=== PATIENT | male | born 1960 ===

== ENCOUNTER 2018-02-05 16:38 | Inpatient (IN) | payer OTHER ==
[2018-02-05 16:43] VITALS: BMI 21.7
[2018-02-05] MEDS ORDERED: Iodixanol 320 MG/ML 100 ML BOTTLE IV ONE (16:55)
[2018-02-05 17:03] LABS: BASO # 0.1 K/uL (0.0-0.2); BASO % 0.7 % (0.0-2.0); EOS # 0.3 K/uL (0.0-0.7); EOS % 2.7 % (0.0-4.0); HEMOGLOBIN 14.5 g/dL (12.0-18.0); LYMPH % 26.9 % (20.0-40.0); MEAN CELL VOLUME 85.7 fL (80.0-94.0); MEAN CORPUSCULAR HGB CONC 33.8 g/dL (33.0-37.0); MEAN PLATELET VOLUME 7.5 fL (7.2-11.7); MONO # 1.1 K/uL (0.0-0.8); MONO % 10.1 % (0.0-10.0); NEUT # 6.7 K/uL (1.8-7.0); NEUT % 59.6 % (50.0-75.0); RBC 5.01 Mil/uL (4.40-5.90); RED CELL DISTRIBUTION WIDTH 13.7 % (11.5-14.5); WHITE BLOOD COUNT 11.3 K/uL (4.8-10.8)
--- NOTE | 2018-02-05 17:06 | CT ---
PROCEDURE: CT HEAD WITHOUT CONTRAST. HISTORY: Left sided weakness. Abnormal FTN on left COMPARISON: None available. TECHNIQUE: Axial computed tomography images were obtained through the head/brain without intravenous contrast. Coronal and sagittal reconstructed images. Radiation dose: Total exam DLP = 854.94 mGy-cm. This CT exam was performed using one or more of the following dose reduction techniques: Automated exposure control, adjustment of the mA and/or kV according to patient size, and/or use of iterative reconstruction technique. FINDINGS: HEMORRHAGE: No intracranial hemorrhage. BRAIN: No mass effect or edema. No atrophy or chronic microvascular ischemic changes. VENTRICLES: Unremarkable. No hydrocephalus. CALVARIUM: Unremarkable. PARANASAL SINUSES: Completely opacified right maxillary sinus. No evidence of acute sinusitis. MASTOID AIR CELLS: Unremarkable as visualized. No inflammatory changes. OTHER FINDINGS: Prominent vaginal and transverse sinuses common normal variant. IMPRESSION: No acute intracranial abnormalities. No significant findings to account for the clinical presentation. Additional benign and/or incidental findings described above. Code stroke protocol: Study completed 16:54 Radiologist notified 16:57 Results conveyed verbally at 17:03. Findings provided verbally to the attending physicianHayley Gomez M.D. Interpretation finalized and available for review 17:05
[2018-02-05 17:10] LABS: INR 0.9; PROTHROMBIN TIME 10.1 SECONDS (9.7-12.2)
--- NOTE | 2018-02-05 17:12 | C.PDOC ---
History Of Present Illness Pt develop left sided weakness at home. Weakness resolved upon arrival to the ER. Time Seen by Provider: 02/05/18 16:46 Chief Complaint (Nursing): Weakness/Neurological Deficit History Per: Patient, Family Onset/Duration Of Symptoms: Hrs (1.5) Current Symptoms Are (Timing): Better Fall Associated With With Symptoms: No Severity: Moderate Additional History Per: Prior Records - Symptoms Of CVA Character Of Deficits: Left: Weakness, Sensory Loss, Right: Sensory Loss, Arm: Weakness, Leg: Weakness, Sensory Loss Recent Head Trauma: No Past Medical History Reviewed: Historical Data, Nursing Documentation, Vital Signs Vital Signs: Last Vital Signs Temp 99.2 F 02/05/18 16:40 Pulse 103 H 02/05/18 17:42 Resp 14 02/05/18 17:42 BP 156/100 H 02/05/18 17:42 Pulse Ox 97 02/05/18 19:24 - Medical History PMH: HTN, Hypercholesterolemia Family History: States: Unknown Family Hx - Social History Hx Alcohol Use: Yes Hx Substance Use: No - Immunization History Hx Tetanus Toxoid Vaccination: No Hx Influenza Vaccination: No Hx Pneumococcal Vaccination: No Review Of Systems Except As Marked, All Systems Reviewed And Found Negative. Constitutional: Negative for: Fever Cardiovascular: Negative for: Chest Pain Respiratory: Negative for: Shortness of Breath Gastrointestinal: Negative for: Vomiting, Abdominal Pain Musculoskeletal: Negative for: Neck Pain, Back Pain Skin: Negative for: Rash Neurological: Negative for: Seizures, Altered Mental Status, Headache Physical Exam - Physical Exam Appears: Non-toxic, No Acute Distress Skin: Normal Color, Warm, Dry Head: Atraumatic, Normacephalic Eye(s): bilateral: PERRL, EOMI Neck: Normal ROM, Supple Cardiovascular: Rhythm Regular (tachycardia) Respiratory: Normal Breath Sounds, No Accessory Muscle Use Gastrointestinal/Abdominal: Soft, No Tenderness Extremity: Normal ROM, No Deformity Neurological/Psych: Oriented x3, Normal Speech, Normal Cognition, Cerebellar Signs (Abnormal left finger to nose), Normal Motor, Normal Sensation ED Course And Treatment - Laboratory Results Result Diagrams: 02/05/18 17:00 02/05/18 17:00 Interpretation Of Abnormal: Positive for Cocaine ECG: Interpreted By Me, Viewed By Me ECG Rhythm: Sinus Tachycardia Rate From EC O2 Sat by Pulse Oximetry: 97 Pulse Ox Interpretation: Normal - Radiology CXR: Interpreted by Me, Viewed By Me CXR Interpretation: Yes: No Acute Disease - CT Scan/US CT head Other Rad Studies (CT/US): Read By Radiologist, Radiology Report Reviewed CT/US Interpretation: IMPRESSION: No acute intracranial abnormalities. No significant findings to account for the clinical presentation. Additional benign and/or incidental findings described above. CTA of chest Other Rad Studies (CT/US): Read By Radiologist, Radiology Report Reviewed CT/US Interpretation: IMPRESSION: Unremarkable CT Angiography of the neck and brain as detailed above. No evidence of large aneurysm nor vascular malformation. Progress Note: Symptoms resolved. Reassessment Condition: Improved - Physician Consult Information Physician Contacted: Yaron Nguyen Outcome Of Conversation: He evaluated pt in the ED. Recommended IV Magnesium and admission for TIA workup. NIHSS Stroke Scale 2 - Date/Time Evaluation Performed Date Performed: 02/05/18 Time Performed: 17:00 When Was NIHSS Performed: Baseline - How Severe is the Stroke Level of Consciousness: 0=Alert LOC to Questions: 0=Both comments correct LOC to commands: 0=Obeys both correctly Best Gaze: 0=Normal Visual: 0=No visual loss Facial: 0=Normal Motor Arm - Left: 0=No drift Motor Arm - Right: 0=No drift Motor Leg - Left: 0=No drift Motor Leg - Right: 0=No drift Limb Ataxia: 1=Present Upper or Lower Sensory: 0=Normal Best Language: 0=No aphasia Dysarthia: 0=Normal articulation Extinction & Inattention (Neglect): 0=Normal, no object Score: 1 Progress - Interventions Interventions:: Observation, Intravenous fluid - Medications Administered Oral: Aspirin (Pt took at home prior to arrival) Intravenous: Other (Mg. Ativan.) - Data Reviewed Data Reviewed: Lab, Diagnostic imaging, EKG, Old records - Patient Status Patient status: Completely improved - Continuity of Care Discussed patient case with:: Patient, Family-HIPPA compliant, ED Nurse - Patient Plan Patient Plan: Admission, Telemetry rTPA Inclusion/Exclusion - Inclusion Criteria for Altepase Patient is 18 years or Older: Yes The Clinical Diagnosis of Ischemic Stroke That is Causing a Potentially Disabling Neurological Deficit: Yes Time of Onset is Well Established to be Less Than 270 Minute Before Treatment Would Begin: Yes Risk/Benefit Discussed With Patient/Family Member Present: No - Warning to TPA With Conditions Condition: Rapid Improvement Disposition Discussed With : Adiel Naik Comment: He accepted pt on hospitalist service Doctor Will See Patient In The: Hospital Counseled Patient/Family Regarding: Studies Performed, Diagnosis - Disposition Disposition: HOSPITALIZED Disposition Time: 19:33 Condition: IMPROVED - Clinical Impression Clinical Impression: TIA (transient ischemic attack)
[2018-02-05 17:16] LABS: ALB/GLOB RATIO 1.2 (1.0-2.1); ALBUMIN 4.3 g/dL (3.5-5.0); ALT/SGPT 13 U/L (21-72); AST/SGOT 29 U/L (17-59); BLOOD UREA NITROGEN 19 mg/dL (9-20); CALCIUM 9.2 mg/dl (8.6-10.4); GFR AFRICAN-AMERICAN > 60; GFR NON-AFRICAN AMERICAN 57; HDL CHOLESTEROL 53 mg/dL (30-70)
[2018-02-05 17:26] LABS: LDL CHOLESTEROL 166 mg/dL (0-129)
[2018-02-05] MEDS ORDERED: Magnesium Sulfate 1 gm in D5W 1 GM/100 ML BAG IVPB STA (17:27)
[2018-02-05] MEDS ORDERED: Sodium Chloride 0.9% 1,000 ML IV ONE (17:30)
--- NOTE | 2018-02-05 17:33 | CT ---
PROCEDURE: CT Angiography of the neck and brain dated 02/05/2018. HISTORY: Left-sided weakness. Abnormal [id number]. COMPARISON: Comparison made with CT scan abdomen pelvis obtained earlier same day. TECHNIQUE: Contiguous helical/transaxial images of the neck were obtained from the level of the skull-base to the superior mediastinum in the arteriographic phase of enhancement. Coronal and sagittal reformats or also generated. IV contrast dose: 100 cc Visipaque 320 Radiation Dose - DLP: 581.27 mGy-cm This CT exam was performed using one or more of the following dose reduction techniques: Automated exposure control, adjustment of the mA and/or kV according to patient size, and/or use of iterative reconstruction technique. FINDINGS: Visualized portions of the aortic arch widely patent. No significant atherosclerotic plaque. There appears to be a common origin of the right brachiocephalic and the common carotid artery. The common carotid artery is common carotid bifurcations and internal carotid arteries are widely patent with no evidence of occlusion dissection or significant stenosis. Minimal punctate calcified plaque seen along the posterior aspect left carotid bifurcation. The internal carotid artery including the petrous cavernous and supraclinoid segments are widely patent. The vertebral arteries are also patent throughout left-sided which is slightly larger in caliber/more dominant than the right side. No evidence of occlusion, dissection or significant stenosis the basilar artery is patent. The visualized major branches of the [place] on appear patent as well. The distal branches of the middle cerebral artery is and anterior cerebral arteries appear relatively symmetric. No evidence of large aneurysm or vascular malformation. Re- demonstrated is complete opacification right maxillary antrum. Minor mucosal thickening left maxillary antrum. Note marrow also made poor dentition with carious teeth and radicular cystic changes. . Note made of centrilobular emphysema in the upper lobes with prominent blebs and or small bullous changes. IMPRESSION: Unremarkable CT Angiography of the neck and brain as detailed above. No evidence of large aneurysm nor vascular malformation. .
[2018-02-05 17:35] LABS: SQUAMOUS EPITHIAL 2 /hpf (0-5); URINE BACTERIA RARE (<OCC); URINE BILIRUBIN NEGATIVE (NEGATIVE); URINE BLOOD NEGATIVE (NEGATIVE); URINE CLARITY Clear (Clear); URINE COLOR Yellow (YELLOW); URINE GLUCOSE (UA) NORMAL (Normal); URINE LEUKOCYTE ESTERASE NEG Leu/uL (Negative); URINE PROTEIN NEGATIVE (NEGATIVE); URINE UROBILINOGEN NORMAL mg/dL (0.2-1.0)
[2018-02-05] MEDS ORDERED: Sodium Chloride 0.9% 1,000 ML ONE (17:35)
[2018-02-05] MEDS ORDERED: Magnesium Sulfate 1 gm in D5W 1 GM/100 ML BAG IVPB ONE (17:35)
[2018-02-05 17:45] LABS: BARBITURATES, UR NEGATIVE (NEGATIVE); BENZODIAZEPINES, UR NEGATIVE (NEGATIVE); OPIATES, UR NEGATIVE (NEGATIVE); PHENCYCLIDINE, UR NEGATIVE (NEGATIVE)
--- NOTE | 2018-02-05 18:29 | CP.PCM.CON ---
History of Present Illness - History of Present Illness History of Present Illness: Neurology Consultation Note for Code Stroke: Mr. Gandhi is a 57-year-old man with a past medical history of HTN, who states that he was cooking earlier today at around 3PM, when he suddenly felt that his legs were weak. This progressed to involve mainly his left leg and then his left arm. He complained of left arm numbness/tingling to his daughter, and she gave him two 325 mg aspirin. EMS was called and noticed left side weakness. He was brought to the ED and a code stroke was called. CT scan of the head did not show any acute findings and CTA of the head did not show an LVO. The patient was hypertensive and tachycardic. UTox was positive for cocaine. His symptoms improved while in the ED and his NIHSS was 0. He was asymptomatic when I saw him, but still hypertensive with BP of 190/110 mm Hg and tachycardic with rate of 114/min. He denied headache, dizziness, nausea, vomiting, or any other symptoms. Review of Systems - Review of Systems All systems: reviewed and no additional remarkable complaints except Past Patient History - Past Social History Smoking Status: Current Some Days Smoker - CARDIAC Hx Hypercholesterolemia: Yes Hx Hypertension: Yes - PSYCHIATRIC Hx Substance Use: No - SURGICAL HISTORY Hx Surgeries: No Meds Allergies/Adverse Reactions: Allergies Allergy/AdvReac Type Severity Reaction Status Date / Time No Known Allergies Allergy Verified 02/05/18 16:41 - Medications Medications: Current Medications Sodium Chloride (Sodium Chloride 0.9%) 1,000 mls @ 1,000 mls/hr IV .Q1H ONE Stop: 02/05/18 18:29 Last Admin: 02/05/18 17:39 Dose: 1,000 mls/hr Physical Exam - Constitutional Appears: Agitated - Head Exam Head Exam: ATRAUMATIC, NORMAL INSPECTION, NORMOCEPHALIC - Eye Exam Eye Exam: EOMI, Normal appearance, PERRL - ENT Exam ENT Exam: Mucous Membranes Moist, Normal Exam - Neck Exam Neck exam: Positive for: Normal Inspection - Respiratory Exam Respiratory Exam: Clear to Auscultation Bilateral, NORMAL BREATHING PATTERN - Cardiovascular Exam Cardiovascular Exam: Tachycardia, +S1, +S2 - GI/Abdominal Exam GI & Abdominal Exam: Normal Bowel Sounds, Soft. absent: Tenderness - Neurological Exam Neurological exam: Alert, CN II-XII Intact, Normal Gait, Oriented x3, Reflexes Normal Additional comments: NIHSS = 0 - Psychiatric Exam Psychiatric exam: Anxious Results - Vital Signs Recent Vital Signs: Last Vital Signs Temp 99.2 F 02/05/18 16:40 Pulse 103 H 02/05/18 17:42 Resp 14 02/05/18 17:42 BP 156/100 H 02/05/18 17:42 Pulse Ox 99 02/05/18 17:42 - Labs Result Diagrams: 02/05/18 17:00 02/05/18 17:00 Labs: Laboratory Results - last 24 hr 02/05/18 02/05/18 02/05/18 16:39 17:00 17:00 WBC 11.3 H RBC 5.01 Hgb 14.5 Hct 43.0 MCV 85.7 MCH 29.0 MCHC 33.8 RDW 13.7 Plt Count 404 H MPV 7.5 Neut % (Auto) 59.6 Lymph % (Auto) 26.9 [place] % (Auto) 10.1 H Eos % (Auto) 2.7 Baso % (Auto) 0.7 Neut # (Auto) 6.7 Lymph # (Auto) 3.0 [place] # (Auto) 1.1 H Eos # (Auto) 0.3 Baso # (Auto) 0.1 PT 10.1 INR 0.9 APTT 28 Sodium Potassium Chloride Carbon Dioxide Anion Gap BUN Creatinine Est GFR ( Amer) Est GFR (Non-Af Amer) POC Glucose (mg/dL) 118 H Random Glucose Hemoglobin A1c Calcium Magnesium Total Bilirubin AST ALT Alkaline Phosphatase Troponin I Total Protein Albumin Globulin Albumin/Globulin Ratio Triglycerides Cholesterol LDL Cholesterol Direct HDL Cholesterol Urine Color Urine Clarity Urine pH Ur Specific [place] Urine Protein Urine Glucose (UA) Urine Ketones Urine Blood Urine Nitrate Urine Bilirubin Urine Urobilinogen Ur Leukocyte Esterase Urine WBC (Auto) Urine RBC (Auto) Ur Squamous Epith Cells Urine Bacteria Urine Opiates Screen Urine Methadone Screen Ur Barbiturates Screen Ur Phencyclidine Scrn Ur Amphetamines Screen U Benzodiazepines Scrn U Oth Cocaine Metabols U Cannabinoids Screen Blood Type Antibody Screen 02/05/18 02/05/18 02/05/18 17:00 17:05 17:05 WBC RBC Hgb Hct MCV MCH MCHC RDW Plt Count MPV Neut % (Auto) Lymph % (Auto) [place] % (Auto) Eos % (Auto) Baso % (Auto) Neut # (Auto) Lymph # (Auto) [place] # (Auto) Eos # (Auto) Baso # (Auto) PT INR APTT Sodium 138 Potassium 4.0 Chloride 101 Carbon Dioxide 22 Anion Gap 18 BUN 19 Creatinine 1.3 Est GFR ( Amer) > 60 Est GFR (Non-Af Amer) 57 POC Glucose (mg/dL) Random Glucose 119 H Hemoglobin A1c 6.1 Calcium 9.2 Magnesium Total Bilirubin 0.7 AST 29 ALT 13 L Alkaline Phosphatase 70 Troponin I < 0.0120 Total Protein 7.9 Albumin 4.3 Globulin 3.6 Albumin/Globulin Ratio 1.2 Triglycerides 240 H Cholesterol 239 H LDL Cholesterol Direct 166 H HDL Cholesterol 53 Urine Color Urine Clarity Urine pH Ur Specific [place] Urine Protein Urine Glucose (UA) Urine Ketones Urine Blood Urine Nitrate Urine Bilirubin Urine Urobilinogen Ur Leukocyte Esterase Urine WBC (Auto) Urine RBC (Auto) Ur Squamous Epith Cells Urine Bacteria Urine Opiates Screen Urine Methadone Screen Ur Barbiturates Screen Ur Phencyclidine Scrn Ur Amphetamines Screen U Benzodiazepines Scrn U Oth Cocaine Metabols U Cannabinoids Screen Blood Type A POSITIVE Antibody Screen Negative 02/05/18 02/05/18 02/05/18 17:25 17:25 17:37 WBC RBC Hgb Hct MCV MCH MCHC RDW Plt Count MPV Neut % (Auto) Lymph % (Auto) [place] % (Auto) Eos % (Auto) Baso % (Auto) Neut # (Auto) Lymph # (Auto) [place] # (Auto) Eos # (Auto) Baso # (Auto) PT INR APTT Sodium Potassium Chloride Carbon Dioxide Anion Gap BUN Creatinine Est GFR ( Amer) Est GFR (Non-Af Amer) POC Glucose (mg/dL) Random Glucose Hemoglobin A1c Calcium Magnesium 1.8 Total Bilirubin AST ALT Alkaline Phosphatase Troponin I Total Protein Albumin Globulin Albumin/Globulin Ratio Triglycerides Cholesterol LDL Cholesterol Direct HDL Cholesterol Urine Color Yellow Urine Clarity Clear Urine pH 5.0 Ur Specific [place] 1.038 H Urine Protein Negative Urine Glucose (UA) Normal Urine Ketones Negative Urine Blood Negative Urine Nitrate Negative Urine Bilirubin Negative Urine Urobilinogen Normal Ur Leukocyte Esterase Neg Urine WBC (Auto) 1 Urine RBC (Auto) < 1 Ur Squamous Epith Cells 2 Urine Bacteria Rare Urine Opiates Screen Negative Urine Methadone Screen Negative Ur Barbiturates Screen Negative Ur Phencyclidine Scrn Negative Ur Amphetamines Screen Negative U Benzodiazepines Scrn Negative U Oth Cocaine Metabols Positive H U Cannabinoids Screen Negative Blood Type Antibody Screen Assessment & Plan (1) TIA (transient ischemic attack) Assessment and Plan: Currently, the patient is asymptomatic, but on initial presentation he had left side weakness. It may be that he had a clot or vasospasm that resolved. This may have been due to cardiac dysrrhythmia from cocaine or vasospasm. I recommend the followin. Admit to telemetry 2. MRI brain without contrast 3. Give 2 grams of magnesium sulfate IV 4. Permissive HTN (treat BP higher than 220/110 mm Hg); avoid beta-blockers due to unopposed alpha response with cocaine, use CCB instead 5. Echocardiogram with bubble study 6. PT/OT eval 7. Fluids with NS at 100 mL/hr 8. Aspirin 81 mg daily 9. Check lipid panel, HbA1c, B12, folate, vitamin D level, homocysteine level 10. Case management consult 11. green chain worker consult Thank you. Status: Acute Priority: High
--- NOTE | 2018-02-05 18:58 | RAD ---
HISTORY: Code Stroke COMPARISON: Sweat pants FINDINGS: LUNGS: No active pulmonary disease. PLEURA: No significant pleural effusion identified, no pneumothorax apparent. CARDIOVASCULAR: Normal. OSSEOUS STRUCTURES: No significant abnormalities. VISUALIZED UPPER ABDOMEN: Normal. OTHER FINDINGS: None. IMPRESSION: No active disease.
--- NOTE | 2018-02-05 21:05 | CP.PCM.HP ---
<Karissa Melara - Last Filed: 02/05/18 22:15> History of Present Illness - History of Present Illness History of Present Illness: CC: TIA 57 year old male with past medical history of hypertension and hyperlipidemia presents to the ED today complaining of left arm weakness, left leg weakness and aphasia started this afternoon at 3:30PM. Patient had just came home from work and was resting at the onset of his symptoms. Other associated symptoms include dizziness, numbness of left upper and lower extremities. No prior history of the same. Patient's daughter immediately gave patient aspirin 325mg and EMS was called. Patient's symptoms improved gradually with complete resolution upon neurologist evaluation in the ED. Patient was started on cholesterol and antihypertensive medications 1 year ago, but stopped taking them after 1 month. Patient's family members are concern about his health because he does not watch what he eats. Patient denies having fever, chills, headache, vision changes, shortness of breath, chest pain, palpitations , nausea, vomiting, diarrhea, or urinary symptoms. Patient admits to snorting cocaine. His last use was on last Monday. When asked about frequency of use patient replied "no, not much" PMD: Dr. Lee PMHx: HTN, HLD PSHx: denies Allergy: none Social hx: social alcohol consumption, chronic cigarette smoker (1-2 cigarettes with alcohol since youth) Family Hx: unknown Home meds: unknown lipid lowering agent, and antihypertensive Pharmacy: [facility] [phone] Present on Admission - Present on Admission Any Indicators Present on Admission: No Review of Systems - Constitutional Constitutional: As Per HPI. absent: Anorexia, Chills, Fever, Headache - EENT Eyes: As Per HPI. absent: Blurred Vision, Change in Vision, Decreased Night Vision Ears: As Per HPI. absent: Abnormal Hearing, Dizziness Nose/Mouth/Throat: As Per HPI. absent: Epistaxis, Nasal Congestion - Cardiovascular Cardiovascular: As Per HPI. absent: Chest Pain, Chest Pain at Rest, Chest Pain with Activity, Dyspnea - Respiratory Respiratory: As Per HPI. absent: Dyspnea, Wheezing - Gastrointestinal Gastrointestinal: As Per HPI. absent: Abdominal Pain, Bloating, Diarrhea, Nausea, Vomiting - Genitourinary Genitourinary: As Per HPI. absent: Change in Urinary Stream, Dysuria - Reproductive: Male Reproductive:Male: As Per HPI - Musculoskeletal Musculoskeletal: As Per HPI, Numbness (left sided) - Integumentary Integumentary: As Per HPI. absent: Acne, Alopecia, Bleeding Lesions - Neurological Neurological: As Per HPI, Abnormal Speech, Numbness - Psychiatric Psychiatric: As Per HPI. absent: Anxiety, Depression - Endocrine Endocrine: As Per HPI. absent: Change in Body Appearance, Cold Intolorance - Hematologic/Lymphatic Hematologic: As Per HPI Past Patient History - Past Social History Smoking Status: Current Some Days Smoker - CARDIAC Hx Hypercholesterolemia: Yes Hx Hypertension: Yes - PSYCHIATRIC Hx Substance Use: No - SURGICAL HISTORY Hx Surgeries: No Meds Allergies/Adverse Reactions: Allergies Allergy/AdvReac Type Severity Reaction Status Date / Time No Known Allergies Allergy Verified 02/05/18 16:41 Physical Exam - Constitutional Appears: Non-toxic, No Acute Distress - Head Exam Head Exam: ATRAUMATIC, NORMOCEPHALIC - Eye Exam Eye Exam: EOMI, Normal appearance, PERRL Pupil Exam: NORMAL ACCOMODATION - ENT Exam ENT Exam: Mucous Membranes Moist - Neck Exam Neck exam: Positive for: Normal Inspection - Respiratory Exam Respiratory Exam: Clear to Auscultation Bilateral, NORMAL BREATHING PATTERN. absent: Rhonchi, Wheezes, Respiratory Distress - Cardiovascular Exam Cardiovascular Exam: REGULAR RHYTHM, +S1, +S2 - GI/Abdominal Exam GI & Abdominal Exam: Normal Bowel Sounds, Soft. absent: Tenderness - Extremities Exam Extremities exam: Positive for: normal inspection, pedal pulses present. Negative for: pedal edema, tenderness - Neurological Exam Neurological exam: Alert, Oriented x3 - Psychiatric Exam Psychiatric exam: Normal Affect, Normal Mood - Skin Skin Exam: Intact, Warm Results - Vital Signs Recent Vital Signs: Last Vital Signs Temp 98.8 F 02/05/18 20:40 Pulse 99 H 02/05/18 19:28 Resp 22 02/05/18 20:40 BP 152/88 H 02/05/18 20:40 Pulse Ox 96 02/05/18 20:40 - Labs Result Diagrams: 02/05/18 17:00 02/05/18 17:00 Labs: Laboratory Results - last 24 hr 02/05/18 02/05/18 02/05/18 16:39 17:00 17:00 WBC 11.3 H RBC 5.01 Hgb 14.5 Hct 43.0 MCV 85.7 MCH 29.0 MCHC 33.8 RDW 13.7 Plt Count 404 H MPV 7.5 Neut % (Auto) 59.6 Lymph % (Auto) 26.9 [place] % (Auto) 10.1 H Eos % (Auto) 2.7 Baso % (Auto) 0.7 Neut # (Auto) 6.7 Lymph # (Auto) 3.0 [place] # (Auto) 1.1 H Eos # (Auto) 0.3 Baso # (Auto) 0.1 PT 10.1 INR 0.9 APTT 28 Sodium Potassium Chloride Carbon Dioxide Anion Gap BUN Creatinine Est GFR ( Amer) Est GFR (Non-Af Amer) POC Glucose (mg/dL) 118 H Random Glucose Hemoglobin A1c Calcium Magnesium Total Bilirubin AST ALT Alkaline Phosphatase Troponin I Total Protein Albumin Globulin Albumin/Globulin Ratio Triglycerides Cholesterol LDL Cholesterol Direct HDL Cholesterol Urine Color Urine Clarity Urine pH Ur Specific [place] Urine Protein Urine Glucose (UA) Urine Ketones Urine Blood Urine Nitrate Urine Bilirubin Urine Urobilinogen Ur Leukocyte Esterase Urine WBC (Auto) Urine RBC (Auto) Ur Squamous Epith Cells Urine Bacteria Urine Opiates Screen Urine Methadone Screen Ur Barbiturates Screen Ur Phencyclidine Scrn Ur Amphetamines Screen U Benzodiazepines Scrn U Oth Cocaine Metabols U Cannabinoids Screen Blood Type Antibody Screen 02/05/18 02/05/18 02/05/18 17:00 17:05 17:05 WBC RBC Hgb Hct MCV MCH MCHC RDW Plt Count MPV Neut % (Auto) Lymph % (Auto) [place] % (Auto) Eos % (Auto) Baso % (Auto) Neut # (Auto) Lymph # (Auto) [place] # (Auto) Eos # (Auto) Baso # (Auto) PT INR APTT Sodium 138 Potassium 4.0 Chloride 101 Carbon Dioxide 22 Anion Gap 18 BUN 19 Creatinine 1.3 Est GFR ( Amer) > 60 Est GFR (Non-Af Amer) 57 POC Glucose (mg/dL) Random Glucose 119 H Hemoglobin A1c 6.1 Calcium 9.2 Magnesium Total Bilirubin 0.7 AST 29 ALT 13 L Alkaline Phosphatase 70 Troponin I < 0.0120 Total Protein 7.9 Albumin 4.3 Globulin 3.6 Albumin/Globulin Ratio 1.2 Triglycerides 240 H Cholesterol 239 H LDL Cholesterol Direct 166 H HDL Cholesterol 53 Urine Color Urine Clarity Urine pH Ur Specific [place] Urine Protein Urine Glucose (UA) Urine Ketones Urine Blood Urine Nitrate Urine Bilirubin Urine Urobilinogen Ur Leukocyte Esterase Urine WBC (Auto) Urine RBC (Auto) Ur Squamous Epith Cells Urine Bacteria Urine Opiates Screen Urine Methadone Screen Ur Barbiturates Screen Ur Phencyclidine Scrn Ur Amphetamines Screen U Benzodiazepines Scrn U Oth Cocaine Metabols U Cannabinoids Screen Blood Type A POSITIVE Antibody Screen Negative 02/05/18 02/05/18 02/05/18 17:25 17:25 17:37 WBC RBC Hgb Hct MCV MCH MCHC RDW Plt Count MPV Neut % (Auto) Lymph % (Auto) [place] % (Auto) Eos % (Auto) Baso % (Auto) Neut # (Auto) Lymph # (Auto) [place] # (Auto) Eos # (Auto) Baso # (Auto) PT INR APTT Sodium Potassium Chloride Carbon Dioxide Anion Gap BUN Creatinine Est GFR ( Amer) Est GFR (Non-Af Amer) POC Glucose (mg/dL) Random Glucose Hemoglobin A1c Calcium Magnesium 1.8 Total Bilirubin AST ALT Alkaline Phosphatase Troponin I Total Protein Albumin Globulin Albumin/Globulin Ratio Triglycerides Cholesterol LDL Cholesterol Direct HDL Cholesterol Urine Color Yellow Urine Clarity Clear Urine pH 5.0 Ur Specific [place] 1.038 H Urine Protein Negative Urine Glucose (UA) Normal Urine Ketones Negative Urine Blood Negative Urine Nitrate Negative Urine Bilirubin Negative Urine Urobilinogen Normal Ur Leukocyte Esterase Neg Urine WBC (Auto) 1 Urine RBC (Auto) < 1 Ur Squamous Epith Cells 2 Urine Bacteria Rare Urine Opiates Screen Negative Urine Methadone Screen Negative Ur Barbiturates Screen Negative Ur Phencyclidine Scrn Negative Ur Amphetamines Screen Negative U Benzodiazepines Scrn Negative U Oth Cocaine Metabols Positive H U Cannabinoids Screen Negative Blood Type Antibody Screen Assessment & Plan - Assessment and Plan (Free Text) Assessment: TIA -Telemetry -CT head shows no acute intracranial abnormalities (see report) -CTA neck and brain shows no evidence of large aneurysm nor vascular malformation -Neurology consulted, Dr. Nguyen help appreciated -NIHSS 0 upon physical examination -Neuro check Q3 -Aspirin 81mg -Crestor 10mg -Follow up brain MRI w/o contrast Hypertension -Start treatment if BP>220/110mmHg, consider Ca channel mikala Hyperlipidemia -TG 240, Chol 239, LDL 166 -Crestor 10mg Cocaine -UDS positive for cocaine -Avoid beta mikala -Cessation was strongly advised Prophylactic measures -Lovenox -Protonix -PT/OT Case discussed with attending physician <Adiel Naik - Last Filed: 02/06/18 06:49> Results - Vital Signs Recent Vital Signs: Last Vital Signs Temp 98.2 F 02/05/18 23:07 Pulse 81 02/06/18 03:26 Resp 20 02/05/18 23:07 BP 154/91 H 02/05/18 23:07 Pulse Ox 98 02/05/18 23:07 - Labs Result Diagrams: 02/05/18 17:00 02/05/18 17:00 Labs: Laboratory Results - last 24 hr 02/05/18 02/05/18 02/05/18 16:39 17:00 17:00 WBC 11.3 H RBC 5.01 Hgb 14.5 Hct 43.0 MCV 85.7 MCH 29.0 MCHC 33.8 RDW 13.7 Plt Count 404 H MPV 7.5 Neut % (Auto) 59.6 Lymph % (Auto) 26.9 [place] % (Auto) 10.1 H Eos % (Auto) 2.7 Baso % (Auto) 0.7 Neut # (Auto) 6.7 Lymph # (Auto) 3.0 [place] # (Auto) 1.1 H Eos # (Auto) 0.3 Baso # (Auto) 0.1 PT 10.1 INR 0.9 APTT 28 Sodium Potassium Chloride Carbon Dioxide Anion Gap BUN Creatinine Est GFR ( Amer) Est GFR (Non-Af Amer) POC Glucose (mg/dL) 118 H Random Glucose Hemoglobin A1c Calcium Magnesium Total Bilirubin AST ALT Alkaline Phosphatase Troponin I Total Protein Albumin Globulin Albumin/Globulin Ratio Triglycerides Cholesterol LDL Cholesterol Direct HDL Cholesterol Urine Color Urine Clarity Urine pH Ur Specific [place] Urine Protein Urine Glucose (UA) Urine Ketones Urine Blood Urine Nitrate Urine Bilirubin Urine Urobilinogen Ur Leukocyte Esterase Urine WBC (Auto) Urine RBC (Auto) Ur Squamous Epith Cells Urine Bacteria Urine Opiates Screen Urine Methadone Screen Ur Barbiturates Screen Ur Phencyclidine Scrn Ur Amphetamines Screen U Benzodiazepines Scrn U Oth Cocaine Metabols U Cannabinoids Screen Blood Type Antibody Screen 02/05/18 02/05/18 02/05/18 17:00 17:05 17:05 WBC RBC Hgb Hct MCV MCH MCHC RDW Plt Count MPV Neut % (Auto) Lymph % (Auto) [place] % (Auto) Eos % (Auto) Baso % (Auto) Neut # (Auto) Lymph # (Auto) [place] # (Auto) Eos # (Auto) Baso # (Auto) PT INR APTT Sodium 138 Potassium 4.0 Chloride 101 Carbon Dioxide 22 Anion Gap 18 BUN 19 Creatinine 1.3 Est GFR ( Amer) > 60 Est GFR (Non-Af Amer) 57 POC Glucose (mg/dL) Random Glucose 119 H Hemoglobin A1c 6.1 Calcium 9.2 Magnesium Total Bilirubin 0.7 AST 29 ALT 13 L Alkaline Phosphatase 70 Troponin I < 0.0120 Total Protein 7.9 Albumin 4.3 Globulin 3.6 Albumin/Globulin Ratio 1.2 Triglycerides 240 H Cholesterol 239 H LDL Cholesterol Direct 166 H HDL Cholesterol 53 Urine Color Urine Clarity Urine pH Ur Specific [place] Urine Protein Urine Glucose (UA) Urine Ketones Urine Blood Urine Nitrate Urine Bilirubin Urine Urobilinogen Ur Leukocyte Esterase Urine WBC (Auto) Urine RBC (Auto) Ur Squamous Epith Cells Urine Bacteria Urine Opiates Screen Urine Methadone Screen Ur Barbiturates Screen Ur Phencyclidine Scrn Ur Amphetamines Screen U Benzodiazepines Scrn U Oth Cocaine Metabols U Cannabinoids Screen Blood Type A POSITIVE Antibody Screen Negative 02/05/18 02/05/18 02/05/18 17:25 17:25 17:37 WBC RBC Hgb Hct MCV MCH MCHC RDW Plt Count MPV Neut % (Auto) Lymph % (Auto) [place] % (Auto) Eos % (Auto) Baso % (Auto) Neut # (Auto) Lymph # (Auto) [place] # (Auto) Eos # (Auto) Baso # (Auto) PT INR APTT Sodium Potassium Chloride Carbon Dioxide Anion Gap BUN Creatinine Est GFR ( Amer) Est GFR (Non-Af Amer) POC Glucose (mg/dL) Random Glucose Hemoglobin A1c Calcium Magnesium 1.8 Total Bilirubin AST ALT Alkaline Phosphatase Troponin I Total Protein Albumin Globulin Albumin/Globulin Ratio Triglycerides Cholesterol LDL Cholesterol Direct HDL Cholesterol Urine Color Yellow Urine Clarity Clear Urine pH 5.0 Ur Specific [place] 1.038 H Urine Protein Negative Urine Glucose (UA) Normal Urine Ketones Negative Urine Blood Negative Urine Nitrate Negative Urine Bilirubin Negative Urine Urobilinogen Normal Ur Leukocyte Esterase Neg Urine WBC (Auto) 1 Urine RBC (Auto) < 1 Ur Squamous Epith Cells 2 Urine Bacteria Rare Urine Opiates Screen Negative Urine Methadone Screen Negative Ur Barbiturates Screen Negative Ur Phencyclidine Scrn Negative Ur Amphetamines Screen Negative U Benzodiazepines Scrn Negative U Oth Cocaine Metabols Positive H U Cannabinoids Screen Negative Blood Type Antibody Screen Attending/Attestation - Attestation I have personally seen and examined this patient.: Yes I have fully participated in the care of the patient.: Yes I have reviewed all pertinent clinical information: Yes Notes (Text): 02/06/18 06:45 Waxing waning symptoms from 3:30 pm yesterday started with weakness in legs, then left arm weakness, numbness, some aphasia when EMT came, in hospital coordination difficulty at time of exam. Almost complete resolution of all symptoms. Tachycardia, htn, jitteriness, positive cocaine above presentation form [employer] clot vs cocaine induce spasm. H/o htn, non compliant, h/o tobacco abuse , family unaware of cocaine. Plan MRI brain Echo Neuro checks PT/OT ASA, crestor Counselled about tobacco, alcohol, cocaine abuse GI/DVT prophylaxis See orders for detail.
[2018-02-05 22:52] VITALS: RESP 20
[2018-02-06 07:20] LABS: BASO # 0.1 K/uL (0.0-0.2); BASO % 0.7 % (0.0-2.0); EOS # 0.3 K/uL (0.0-0.7); EOS % 3.7 % (0.0-4.0); HEMOGLOBIN 13.5 g/dL (12.0-18.0); LYMPH # 2.4 K/uL (1.0-4.3); LYMPH % 26.7 % (20.0-40.0); MEAN CELL VOLUME 85.8 fL (80.0-94.0); MEAN CORPUSCULAR HEMOGLOBIN 29.1 pg (27.0-31.0); MEAN CORPUSCULAR HGB CONC 33.9 g/dL (33.0-37.0); MEAN PLATELET VOLUME 7.9 fL (7.2-11.7); MONO # 0.8 K/uL (0.0-0.8); MONO % 8.5 % (0.0-10.0); NEUT # 5.5 K/uL (1.8-7.0); NEUT % 60.4 % (50.0-75.0); RBC 4.65 Mil/uL (4.40-5.90); RED CELL DISTRIBUTION WIDTH 13.8 % (11.5-14.5); WHITE BLOOD COUNT 9.2 K/uL (4.8-10.8)
[2018-02-06 08:47] LABS: ALB/GLOB RATIO 1.1 (1.0-2.1); ALBUMIN 3.4 g/dL (3.5-5.0); ALT/SGPT 18 U/L (21-72); AST/SGOT 27 U/L (17-59); BLOOD UREA NITROGEN 13 mg/dL (9-20); CALCIUM 8.7 mg/dl (8.6-10.4); GFR AFRICAN-AMERICAN > 60; GFR NON-AFRICAN AMERICAN > 60
[2018-02-06 09:39] VITALS: TEMP 98
[2018-02-06 09:52] LABS: FOLATE 11.7 ng/mL
[2018-02-06] MEDS ORDERED: Enoxaparin 40 mg Syringe SC SCH (10:00)
[2018-02-06] MEDS ORDERED: Pantoprazole 40 mg EC Tab PO SCH (10:00)
[2018-02-06] MEDS ORDERED: Ergocalciferol 50,000 Intl Units Cap PO SCH (12:00)
--- NOTE | 2018-02-06 12:12 | CARD ---
APPROVED REPORT EKG Measurement Heart [id number] <Conclusion> Sinus tachycardia Otherwise normal ECG
[2018-02-06 15:50] VITALS: BP 158/90; O2SAT 98
--- NOTE | 2018-02-06 16:02 | MRI ---
PROCEDURE: MRI BRAIN WITHOUT CONTRAST HISTORY: TIA COMPARISON: None. TECHNIQUE: Multiplanar, multisequence MR images of the brain were obtained without intravenous contrast enhancement. FINDINGS: HEMORRHAGE: None DWI: No evidence of an acute or early subacute infarction. BRAIN PARENCHYMA: There is limited expansion of the ventricular sulcal sternal spaces compatible with diffuse cerebral atrophy. A tiny dilated perivascular space versus chronic lacune is seen at the anteromedial left thalamus. The sulci and cisterns appear within normal limits with no suspicious extra-axial fluid collection appreciated. There is no mass effect. VENTRICLES: Unremarkable. No hydrocephalus. CRANIUM: Unremarkable. ORBITS: Grossly unremarkable. PARANASAL SINUSES/MASTOIDS: Complete opacification of the right maxillary sinus is reiterated with varying signal intensity suggestive of probable chronic sinusitis with underlying subacute or acute components. Mucosal inflammatory changes are seen at the left maxillary sinus and multiple anterior right ethmoid air cells. VASCULAR SYSTEM: Skull base flow voids intact. OTHER FINDINGS: None. IMPRESSION: No definite acute intracranial findings as per above. However, quite limited diffuse cerebral atrophy is identified. A small chronic lacune or dilated perivascular space is seen at the left thalamus medially.
--- NOTE | 2018-02-06 16:14 | CP.PCM.DIS ---
Provider - Provider Date of Admission: 02/05/18 19:36 Attending physician: Adiel Naik MD Primary care physician: Dr. Lee Consults: Neuro: Shnanonya Time Spent in preparation of Discharge (in minutes): 45 Hospital Course - Lab Results Lab Results: Most Recent Lab Values WBC 9.2 K/uL (4.8-10.8) 02/06/18 07:03 RBC 4.65 Mil/uL (4.40-5.90) 02/06/18 07:03 Hgb 13.5 g/dL (12.0-18.0) 02/06/18 07:03 Hct 39.9 % (35.0-51.0) 02/06/18 07:03 MCV 85.8 fL (80.0-94.0) 02/06/18 07:03 MCH 29.1 pg (27.0-31.0) 02/06/18 07:03 MCHC 33.9 g/dL (33.0-37.0) 02/06/18 07:03 RDW 13.8 % (11.5-14.5) 02/06/18 07:03 Plt Count 324 K/uL (130-400) 02/06/18 07:03 MPV 7.9 fL (7.2-11.7) 02/06/18 07:03 Neut % (Auto) 60.4 % (50.0-75.0) 02/06/18 07:03 Lymph % (Auto) 26.7 % (20.0-40.0) 02/06/18 07:03 [place] % (Auto) 8.5 % (0.0-10.0) 02/06/18 07:03 Eos % (Auto) 3.7 % (0.0-4.0) 02/06/18 07:03 Baso % (Auto) 0.7 % (0.0-2.0) 02/06/18 07:03 Neut # (Auto) 5.5 K/uL (1.8-7.0) 02/06/18 07:03 Lymph # (Auto) 2.4 K/uL (1.0-4.3) 02/06/18 07:03 [place] # (Auto) 0.8 K/uL (0.0-0.8) 02/06/18 07:03 Eos # (Auto) 0.3 K/uL (0.0-0.7) 02/06/18 07:03 Baso # (Auto) 0.1 K/uL (0.0-0.2) 02/06/18 07:03 PT 10.1 SECONDS (9.7-12.2) 02/05/18 17:00 INR 0.9 02/05/18 17:00 APTT 28 SECONDS (21-34) 02/05/18 17:00 Sodium 138 mmol/L (132-148) 02/06/18 07:03 Potassium 4.2 mmol/L (3.6-5.2) 02/06/18 07:03 Chloride 102 mmol/L (98-107) 02/06/18 07:03 Carbon Dioxide 24 mmol/L (22-30) 02/06/18 07:03 Anion Gap 15 (10-20) 02/06/18 07:03 BUN 13 mg/dL (9-20) 02/06/18 07:03 Creatinine 1.0 mg/dL (0.8-1.5) 02/06/18 07:03 Est GFR ( Amer) > 60 02/06/18 07:03 Est GFR (Non-Af Amer) > 60 02/06/18 07:03 POC Glucose (mg/dL) 118 mg/dL (65-110) H 02/05/18 16:39 Random Glucose 91 mg/dL (75-110) 02/06/18 07:03 Hemoglobin A1c 6.1 % (4.2-6.5) 02/06/18 07:03 Calcium 8.7 mg/dl (8.6-10.4) 02/06/18 07:03 Magnesium 1.8 mg/dL (1.6-2.3) 02/05/18 17:37 Total Bilirubin 1.0 mg/dL (0.2-1.3) 02/06/18 07:03 AST 27 U/L (17-59) 02/06/18 07:03 ALT 18 U/L (21-72) L D 02/06/18 07:03 Alkaline Phosphatase 50 U/L (38-126) 02/06/18 07:03 Troponin I < 0.0120 ng/mL (0.00-0.120) 02/05/18 17:00 Total Protein 6.5 g/dL (6.3-8.3) 02/06/18 07:03 Albumin 3.4 g/dL (3.5-5.0) L D 02/06/18 07:03 Globulin 3.0 gm/dL (2.2-3.9) 02/06/18 07:03 Albumin/Globulin Ratio 1.1 (1.0-2.1) 02/06/18 07:03 Triglycerides 240 mg/dL (0-149) H 02/05/18 17:00 Cholesterol 239 mg/dL (0-199) H 02/05/18 17:00 LDL Cholesterol Direct 166 mg/dL (0-129) H 02/05/18 17:00 HDL Cholesterol 53 mg/dL (30-70) 02/05/18 17:00 Vitamin B12 201 pg/mL (239-931) L 02/06/18 07:03 25-OH Vitamin D Total 15.8 NG/ML (30.0-100.0) L 02/06/18 07:03 Folate 11.7 ng/mL 02/06/18 07:03 Homocysteine 10.0 umol/L (6.6-14.8) 02/06/18 07:03 Urine Color Yellow (YELLOW) 02/05/18 17:25 Urine Clarity Clear (Clear) 02/05/18 17:25 Urine pH 5.0 (5.0-8.0) 02/05/18 17:25 Ur Specific [place] 1.038 (1.003-1.030) H 02/05/18 17:25 Urine Protein Negative mg/dL (NEGATIVE) 02/05/18 17:25 Urine Glucose (UA) Normal mg/dL (Normal) 02/05/18 17:25 Urine Ketones Negative mg/dL (NEGATIVE) 02/05/18 17:25 Urine Blood Negative (NEGATIVE) 02/05/18 17:25 Urine Nitrate Negative (NEGATIVE) 02/05/18 17:25 Urine Bilirubin Negative (NEGATIVE) 02/05/18 17:25 Urine Urobilinogen Normal mg/dL (0.2-1.0) 02/05/18 17:25 Ur Leukocyte Esterase Neg Saqib/uL (Negative) 02/05/18 17:25 Urine WBC (Auto) 1 /hpf (0-5) 02/05/18 17:25 Urine RBC (Auto) < 1 /hpf (0-3) 02/05/18 17:25 Ur Squamous Epith Cells 2 /hpf (0-5) 02/05/18 17:25 Urine Bacteria Rare (<OCC) 02/05/18 17:25 Urine Opiates Screen Negative (NEGATIVE) 02/05/18 17:25 Urine Methadone Screen Negative (NEGATIVE) 02/05/18 17:25 Ur Barbiturates Screen Negative (NEGATIVE) 02/05/18 17:25 Ur Phencyclidine Scrn Negative (NEGATIVE) 02/05/18 17:25 Ur Amphetamines Screen Negative (NEGATIVE) 02/05/18 17:25 U Benzodiazepines Scrn Negative (NEGATIVE) 02/05/18 17:25 U Oth Cocaine Metabols Positive (NEGATIVE) H 02/05/18 17:25 U Cannabinoids Screen Negative (NEGATIVE) 02/05/18 17:25 Blood Type A POSITIVE 02/05/18 17:05 Antibody Screen Negative 02/05/18 17:05 - Hospital Course Hospital Course: 57 year old male with past medical history of hypertension and hyperlipidemia presents to the ED today complaining of left arm weakness, left leg weakness and aphasia started this afternoon at 3:30PM. Patient had just came home from work and was resting at the onset of his symptoms. Other associated symptoms include dizziness, numbness of left upper and lower extremities. No prior history of the same. Patient's daughter immediately gave patient aspirin 325mg and EMS was called. Patient's symptoms improved gradually with complete resolution upon neurologist evaluation in the ED. Patient was started on cholesterol and antihypertensive medications 1 year ago, but stopped taking them after 1 month. Patient's family members are concern about his health because he does not watch what he eats. Patient denies having fever, chills, headache, vision changes, shortness of breath, chest pain, palpitations , nausea, vomiting, diarrhea, or urinary symptoms. Patient had CT scan of the head that did not show any bleed. Patient had CTA that was unremarkable. Patient had MRI of brain that was unremarkable. Patient had echo that can be followed up by primary doctor as outpatient. The cause of his symptoms was most likely his cocaine use and he was counseled on how to stop. Patient stated he did not need any help stopping. He will follow up with his primary care doctor. Discharge Exam - Head Exam Head Exam: ATRAUMATIC, NORMOCEPHALIC - Eye Exam Eye Exam: EOMI, Normal appearance, PERRL Pupil Exam: NORMAL ACCOMODATION, PERRL - Respiratory Exam Respiratory Exam: Clear to PA & Lateral, UNREMARKABLE - Cardiovascular Exam Cardiovascular Exam: REGULAR RHYTHM - GI/Abdominal Exam GI & Abdominal Exam: Normal Bowel Sounds - Neurological Exam Neurological exam: Alert, CN II-XII Intact, Normal Gait, Oriented x3, Reflexes Normal - Psychiatric Exam Psychiatric exam: Normal Affect, Normal Mood - Skin Skin Exam: Dry, Intact, Normal Color, Warm Discharge Plan - Discharge Medications Prescriptions: Aspirin 81 mg PO DAILY #30 tab.chew Atorvastatin [Lipitor] 20 mg PO DAILY #30 tab Ergocalciferol [Drisdol 50,000 Intl Units Cap] 1 cap PO Q7D #4 cap - Follow Up Plan Condition: IMPROVED Disposition: HOME/ ROUTINE Instructions: Smoking: Not Just Harmful to Your Lungs and Heart, Transient Ischemic Attack (DC), Quitting Smoking, Aspirin, Atorvastatin, Ergocalciferol Additional Instructions: Please follow up with primary care provider in 7-10 days. Please call to make an appointment. I have faxed a copy of the discharge summary to his office. Please have him follow up the ECHO report. No need for follow up with neurologist at this time. Please continue to take your home medications in addition to Aspirin 81mg daily and Atorvastatin 20mg Daily. Also take Ergocalciferol 89139 units every 7 days for 6 months and then have your vitamin D level checked. Please come back to ED if symptoms return. Referrals: Yaron Nguyen MD [Staff Provider] -
--- NOTE | 2018-02-06 16:24 | CARD ---
APPROVED REPORT EXAM: Two-dimensional and M-mode echocardiogram with Doppler and color Doppler. Other Information Quality : GoodRhythm : INDICATION CVA/TIA RISK FACTORS Hypertension Hyperlipidemia 2D DIMENSIONS IVSd1.2 (0.7-1.1cm)LVDd4.4 (3.9-5.9cm) PWd1.2 (0.7-1.1cm)LVDs3.1 (2.5-4.0cm) FS (%) 28.9 %LVEF (%)50.0 (>50%) M-Mode DIMENSIONS Left Atrium (MM)2.76 (2.5-4.0cm)Aortic Root3.69 (2.2-3.7cm) Aortic Cusp Exc.2.04 (1.5-2.0cm) Mitral Valve MV E [id number]/sE/A ratio0.0 TDI E/Lateral E'0.0E/Medial E'0.0 LEFT VENTRICLE The left ventricle is normal size. There is normal left ventricular wall thickness. The left ventricular function is normal. The left ventricular ejection fraction is within the normal range. No regional wall motion abnormalities noted. No left ventricle thrombus noted on this study. There is no ventricular septal defect visualized. There is no left ventricular aneurysm. There is no mass noted in the left ventricle. RIGHT VENTRICLE The right ventricle is normal size. There is normal right ventricular wall thickness. The right ventricular systolic function is normal. ATRIA The left atrium size is normal. The right atrium size is normal. The interatrial septum is intact with no evidence for an atrial septal defect. AORTIC VALVE The aortic valve is normal in structure and function. No aortic regurgitation is present. There is no aortic valvular stenosis. There is no aortic valvular vegetation. MITRAL VALVE The mitral valve is normal in structure and function. There is no evidence of mitral valve prolapse. There is no mitral valve stenosis. There is no mitral valve regurgitation noted. TRICUSPID VALVE The tricuspid valve is normal in structure and function. There is no tricuspid valve regurgitation noted. There is no tricuspid valve prolapse or vegetation. There is no tricuspid valve stenosis. PULMONIC VALVE The pulmonary valve is normal in structure and function. There is no pulmonic valvular regurgitation. There is no pulmonic valvular stenosis. GREAT VESSELS The aortic root is normal in size. The ascending aorta is normal in size. The pulmonary artery is normal. The IVC is normal in size and collapses >50% with inspiration. PERICARDIAL EFFUSION The pericardium appears normal. There is no pleural effusion. <Conclusion> The left ventricular function is normal. The left ventricular ejection fraction is within the normal range. No regional wall motion abnormalities noted.
[2018-02-06 16:42] VITALS: PULSE 97
== END 2018-02-06 18:05 | disposition home or self-care (01) | DRG 748 ==
LOC: C.ER 16:38 → C.6T 19:36 → C.9E 19:36
PROVIDERS: ADMIT Internal Medicine; ATTEND Internal Medicine
DX: F14.90 Cocaine use, unspecified, uncomplicated (principal); I10 Essential (primary) hypertension; R29.700 NIHSS score 0; R47.01 Aphasia; R00.0 Tachycardia, unspecified; E78.00 Pure hypercholesterolemia, unspecified; F17.210 Nicotine dependence, cigarettes, uncomplicated; R53.1 Weakness